=== PATIENT | male | born 1970 | race Caucasian/White ===

== ENCOUNTER 2019-03-09 04:45 | Inpatient (IN) | payer OTHER ==
[~2019-03-09] VITALS: Ht 182.9 cm; Wt 97.5 kg
[2019-03-09 05:18] LABS: BASOPHILS 0.3 % (0-2); EOSINOPHILS 2.1 % (0-7); HEMATOCRIT 42.4 % (42.0-54.0); HEMOGLOBIN 15.5 g/dL (13.5-17.5); IMMATURE GRANULOCYTES 0.3 % (0-5); LYMPHOCYTES 23.5 % (15-50); MCH 33.4 pg (26.0-34.0); MCHC 36.6 g/dL (31.0-37.0); MCV 91.4 fL (80.0-100.0); MEAN PLATELET VOLUME 10.1 fL (7.4-10.4); MONOCYTES 5.3 % (2-11); NEUTROPHILS 68.5 % (40-80); PLATELET COUNT 199 10x3/uL (130-400); RBC 4.64 10x6/uL (4.20-6.10); RDW 12.3 % (11.5-14.5); WBC 10.2 10x3/uL (4.8-10.8)
[2019-03-09 05:41] LABS: ALBUMIN 4.5 g/dL (3.4-5.0); ALKALINE PHOSPHATASE 46 U/L (46-116); ALT (SGPT) 37 U/L (10-68); BILIRUBIN - TOTAL 0.35 mg/dL (0.2-1.3); CALC OSMOLALITY 279 mosm/kg (275-300); CALCIUM 8.7 mg/dL (8.5-10.1); CARBON DIOXIDE 24.8 mmol/L (21.0-32.0); CHLORIDE - SERUM 104 mmol/L (98-107); CREATININE - SERUM 0.9 mg/dL (0.6-1.3); GLUCOSE 130 mg/dL (74-106); POTASSIUM - SERUM 3.8 mmol/L (3.5-5.1); PROTEIN - SERUM 8.4 g/dL (6.4-8.2); SODIUM 139 mmol/L (136-145); UREA NITROGEN 12 mg/dL (7-18); eGFR NON AFRICAN AMERICAN > 90 mL/min (90-120)
[2019-03-09 05:56] LABS: CKMB 0.6 U/L (0.0-3.6); CREATINE KINASE 114 UL (21-232); MAGNESIUM - SERUM 2.1 mg/dL (1.8-2.4); PRO BNP 40 pg/mL (0-125); TROPONIN-I < 0.017 ng/mL (0.000-0.060)
[2019-03-09 06:32] VITALS: BP 120/72
--- NOTE | 2019-03-09 06:44 | NUR ---
DARLINE BOWDEN TRIED TO CLEAN PT UP BUT PT REFUSED AND STATED HE WOULD CLEN HIMSELF UP AND HIS COULD HELP
--- NOTE | 2019-03-09 07:11 | NUR ---
REPORT RECEIVED FROM OFF GOING NURSE DARLINE HOFF
--- NOTE | 2019-03-09 07:12 | NUR ---
WILL ADMINISTER ORDERED ABT ONCE ORDERED BLOOD CULTURES X2 ARE COMPLETE.
[2019-03-09 07:40] LABS: UDS - AMPHET NEGATIVE QUAL (NEGATIVE); UDS - BARB NEGATIVE QUAL (NEGATIVE); UDS - BENZO NEGATIVE QUAL (NEGATIVE); UDS - COCAINE NEGATIVE QUAL (NEGATIVE); UDS - OPIATE NEGATIVE QUAL (NEGATIVE); UDS - PCP NEGATIVE QUAL (NEGATIVE); UDS - THC NEGATIVE QUAL (NEGATIVE)
[2019-03-09 07:53] LABS: APPEARANCE CLEAR (CLEAR); BACTERIA FEW /hpf (NONE SEEN); BILIRUBIN NEGATIVE (NEGATIVE); COLOR YELLOW (YELLOW); EPITHELIAL CELLS RARE /hpf (0-5); GLUCOSE NEGATIVE (NEGATIVE); KETONE NEGATIVE (NEGATIVE); MUCUS <1+ /lpf (NONE SEEN); NITRITE NEGATIVE (NEGATIVE); PROTEIN 1+ mg/dL (NEGATIVE); SPECIFIC GRAVITY 1.025 (1.005-1.020); UROBILINOGEN NORMAL (NORMAL)
--- NOTE | 2019-03-09 08:30 | NUR ---
NEW PATIENT ADMIT TO ROOM 2105. PATIENT IS AWAKE, ALERT AND ORIENTED X 4. PATIENT IS STABLE, NO ACUTE DISTRESS NOTED AND VSS. O2 PER NC AT 3L. IV TO LT AC 20G INFUSING NS AT 125. PAGTIENT DENIES ANY NEEDS OR PAIN. PATIENT ORIENGTED TO ROOM AND CALL LIGHT . WILL CONTINUE TO MONITOR. SR UP X 2 BED IN LOW POSITION AND CALL LIGHT IN REACH.
--- NOTE | 2019-03-09 09:45 | NUR ---
DR CHAWLA TO ROOM. NEW ORDERS RECEIVED.
[2019-03-09 09:59] VITALS: BP 111/72; Ht 182.9 cm; Wt 97.5 kg
[2019-03-09 12:35] VITALS: BP 116/72
--- NOTE | 2019-03-09 14:41 | NUR ---
DR MARTIN TO ROOM. PATIENT IS STABLE AND VSS. PATIENT DENIES ANY NEEDS OR PAIN. WILL CONTINUE TO MONITOR. SR UP X2 BED IN LOW POSITION AND CALL LIGHT IN REACH.
[2019-03-09 15:00] VITALS: BP 119/75
--- NOTE | 2019-03-09 16:21 | NUR ---
DR MARTIN AND TEO GABRIEL IN ROOM SEEING PATIENT. NEW ORDERS.
--- NOTE | 2019-03-09 19:54 | NUR ---
EVENING ROUNDS COMPLETED. VSS, AAOX4. NO S/S OF DISTRESS. SWELLING NOTED OF LEFT SIDE OF PT FOREHEAD, PT DENIES ANY PAIN @ SITE. PIV INTACT. ATBX INFUSING. DENIES ANY FURTHER NEEDS AT THIS TIME. WILL CPOC.
[2019-03-09 20:00] VITALS: BP 121/75
[2019-03-09 23:00] VITALS: BP 116/72
[2019-03-10 04:13] LABS: BASOPHILS 0.1 % (0-2); EOSINOPHILS 0 % (0-7); HEMATOCRIT 38.3 % (42.0-54.0); HEMOGLOBIN 14.1 g/dL (13.5-17.5); IMMATURE GRANULOCYTES 0.2 % (0-5); LYMPHOCYTES 5.2 % (15-50); MCH 33.2 pg (26.0-34.0); MCHC 36.8 g/dL (31.0-37.0); MCV 90.1 fL (80.0-100.0); MEAN PLATELET VOLUME 10.4 fL (7.4-10.4); MONOCYTES 3.8 % (2-11); NEUTROPHILS 90.7 % (40-80); PLATELET COUNT 179 10x3/uL (130-400); RBC 4.25 10x6/uL (4.20-6.10); RDW 12.3 % (11.5-14.5)
[2019-03-10 04:14] LABS: WBC 15.6 10x3/uL (4.8-10.8)
[2019-03-10 04:30] VITALS: BP 121/73
[2019-03-10 04:48] LABS: ALBUMIN 3.7 g/dL (3.4-5.0); ALKALINE PHOSPHATASE 35 U/L (46-116); ALT (SGPT) 28 U/L (10-68); BILIRUBIN - TOTAL 1.11 mg/dL (0.2-1.3); CALC OSMOLALITY 277 mosm/kg (275-300); CALCIUM 8.9 mg/dL (8.5-10.1); CARBON DIOXIDE 23.4 mmol/L (21.0-32.0); CHLORIDE - SERUM 103 mmol/L (98-107); CREATININE - SERUM 0.8 mg/dL (0.6-1.3); GLUCOSE 142 mg/dL (74-106); POTASSIUM - SERUM 4.1 mmol/L (3.5-5.1); PROTEIN - SERUM 7.4 g/dL (6.4-8.2); SODIUM 138 mmol/L (136-145); TROPONIN-I 0.021 ng/mL (0.000-0.060); UREA NITROGEN 13 mg/dL (7-18); eGFR NON AFRICAN AMERICAN > 90 mL/min (90-120)
--- NOTE | 2019-03-10 07:30 | NUR ---
A/A/OX4. SITTING UP IN BED WATCHING TV. 02 OFF AT PRESENT TIME WITH NO DISTRESS NOTED. DENIES ANY PAIN OR DISCOMFORT AND NO REQUESTS VOICED. ASSESSMENT COMPLETED AND WILL CONTINUE POC.
[2019-03-10 07:35] VITALS: BP 116/61
--- NOTE | 2019-03-10 10:20 | NUR ---
I have reviewed this patient and I concur with the Shift Assessment completed by the Licensed Practical Nurse today this shift.
[2019-03-10 11:21] VITALS: BP 116/76
[2019-03-10] MEDS ORDERED: LEVAQUIN750 MG PO (14:28)
[2019-03-10] MEDS ORDERED: FLORAJEN3 CAPS460 MG PO (14:29)
[2019-03-10] MEDS ORDERED: FLUTICASONE PRO16 GM NASAL (14:29)
[2019-03-10] MEDS ORDERED: PREDNISONE10 MG PO (14:30)
[2019-03-10] MEDS ORDERED: ALBUTEROL SULF8.5 GM INH (14:31)
--- NOTE | 2019-03-10 17:05 | NUR ---
DISCHARGE INSTRUCTIONS REVIEWED WITH PT AND VERBALIZES UNDERSTANDING WITH NO QUESTIONS. SL REMOVED LEFT AC WITH TIP INTACT. LEFT FLOOR VIA AMBULATORY AT HIS REQUEST AND LEFT FACILITY VIA PRIVATE CAR WITH HIS SON.
--- NOTE | 2019-03-10 17:06 | MORECARE ---
CASE MANAGEMENT DISCHARGE SUMMARY PATIENT: CHERYL DHALIWAL UNIT: [id number] ADM DATE: 03/09/19 AGE: 48 : 72 SEX: M ROOM/BED: D.2106 AUTHOR: CHAPIS,DOC PHYSICIAN: REFERRING PHYSICIAN: IVY SAMSON MD DATE OF SERVICE: 03/10/19 Discharge Plan Patient Name: CHERYL DHALIWAL Facility: [facility]:[place] : 1970 Planned Disposition: Home Anticipated Discharge Date: 03/10/19 Discharge Date: Expected LOS: 1 Initial Reviewer: [email or web address] Initial Review Date: 03/10/2019 Generated: 03/10/19 6:06 pm Comments DCP- Discharge Planning Updated by [email or web address]: Leonard Beckham on 03/10/19 4:[address] Patient Name: CHERYL DHALIWAL Admission Status: ER Accout number: [id number] Admission Date: 03-09-2019 : 1970 Admission Diagnosis: Attending: MALI, Current LOS: 1 Anticipated DC Date: 03-10-2019 Planned Disposition: Home Primary Insurance: [employer] PPO Discharge Planning Comments: CM MET WITH PT IN ROOM TO DISCUSS DISCHARGE PLANNING AND NEEDS. PT REPORTS LIVING AT HOME INDEPENDENTLY WITH SPOUSE AND SON. PT HAS NO MEDICAL EQUIPMENT AND NO OUTSIDE SERVICES ASSISTING IN THE HOME. CM DISCUSSED AVAILABILITY OF HOME HEALTH, REHAB SERVICES AND MEDICAL EQUIPMENT. PT DENIES DISCHARGE NEEDS, REPORTS HIS SON WILL PICK HIM UP FOR DISCHARGE HOME. PHYTOPATHOLOGIST NURSE NOTIFIED. Direct Support Staff: Leonard Beckham DCPIA - Discharge Planning Initial Assessment Updated by [email or web address]: Leonard Beckham on 03/10/19 5:01 pm * Is the patient Alert and Oriented? Yes * How many steps to enter\exit or inside your home? NONE * PCP DR. SMASON * Pharmacy [facility] * Preadmission Environment Home with Family * ADLs Independent * Equipment None * Other Equipment NO MEDICAL EQUIPMENT PROVIDER PREFERENCE * List name and contact numbers for known caregivers / representatives who currently or will assist patient after discharge: GERI DHALIWAL, SPOUSE, * Verbal permission to speak to the caregivers and representatives has been obtained from the patient. N/A * Community resources currently utilized None * Please name any agencies selected above. NONE * Additional services required to return to the preadmission environment? No * Can the patient safely return to the preadmission environment? Yes * Has this patient been hospitalized within the prior 30 days at any hospital? No Patient Name: CHERYL DHALIWAL Page [phone] at 1706 All edits/amendments must be made on the electronic document DICTATION DATE: 03/10/191704 DRAMATIC CRITIC: JANELLE 03/10/191704 RPT#: [id number] DC DATE: STATUS: ADM IN [facility] [address] [place] [address] END OF REPORT
== END 2019-03-10 17:12 | disposition home or self-care (01) | DRG 202 ==
LOC: D.ER 04:45 → D.M2 07:26
PROVIDERS: Family Medicine; ADMIT Family Medicine; ATTEND Family Medicine
DX: J20.9 Acute bronchitis, unspecified (principal); F17.213 Nicotine dependence, cigarettes, with withdrawal; J45.901 Unspecified asthma with (acute) exacerbation; S00.03XA Contusion of scalp, initial encounter; W19.XXXA Unspecified fall, initial encounter; F10.129 Alcohol abuse with intoxication, unspecified; Y90.6 Blood alcohol level of 120-199 mg/100 ml

== ENCOUNTER 2019-07-10 04:39 | Inpatient (IN) | payer OTHER ==
[~2019-07-10] VITALS: Ht 193 cm; Wt 99.1 kg
[~2019-07-10 04:39] MED LIST: ALBUTEROL SULF8.5 GM INH; FLORAJEN3 CAPS460 MG PO; FLUTICASONE PRO16 GM NASAL; LEVAQUIN750 MG PO; PREDNISONE10 MG PO
[2019-07-10 05:16] LABS: BASOPHILS 0.2 % (0-2); EOSINOPHILS 3.1 % (0-7); HEMATOCRIT 41.4 % (42.0-54.0); HEMOGLOBIN 15.1 g/dL (13.5-17.5); IMMATURE GRANULOCYTES 0.3 % (0-5); LYMPHOCYTES 13.1 % (15-50); MCHC 36.5 g/dL (31.0-37.0); MCV 90.6 fL (80.0-100.0); MONOCYTES 4.9 % (2-11); NEUTROPHILS 78.4 % (40-80); PLATELET COUNT 213 10x3/uL (130-400); RBC 4.57 10x6/uL (4.20-6.10); RDW 12.1 % (11.5-14.5); WBC 12.6 10x3/uL (4.8-10.8)
[2019-07-10 05:27] LABS: INR 0.96 (0.85-1.17); PROTIME 12.3 SECONDS (11.6-15.0)
[2019-07-10 05:28] LABS: APTT 30.1 SECONDS (22.8-39.4)
[2019-07-10 05:40] LABS: ALBUMIN 4.4 g/dL (3.4-5.0); ALKALINE PHOSPHATASE 59 U/L (46-116); ALT (SGPT) 26 U/L (10-68); BILIRUBIN - TOTAL 0.52 mg/dL (0.2-1.3); CALC OSMOLALITY 279 mosm/kg (275-300); CALCIUM 8.5 mg/dL (8.5-10.1); CARBON DIOXIDE 28.4 mmol/L (21.0-32.0); CHLORIDE - SERUM 102 mmol/L (98-107); GLUCOSE 98 mg/dL (74-106); POTASSIUM - SERUM 4.8 mmol/L (3.5-5.1); PROTEIN - SERUM 7.9 g/dL (6.4-8.2); SODIUM 140 mmol/L (136-145); UREA NITROGEN 14 mg/dL (7-18); eGFR NON AFRICAN AMERICAN 85 mL/min (90-120)
[2019-07-10 05:47] LABS: CKMB 0.7 U/L (0.0-3.6); CREATINE KINASE 121 UL (21-232); PRO BNP 17 pg/mL (0-125); TROPONIN-I < 0.017 ng/mL (0.000-0.060)
--- NOTE | 2019-07-10 06:55 | NUR ---
PT TO RADIOLOGY AT THIS TIME.
--- NOTE | 2019-07-10 07:04 | NUR ---
PT LEFT ED VIA STRETCHER FOR CTA.
--- NOTE | 2019-07-10 07:20 | NUR ---
PT RETURNED FROM RADIOLOGY AT THIS TIME.
[2019-07-10 08:26] VITALS: BP 123/75
--- NOTE | 2019-07-10 10:12 | NUR ---
PT ARRIVED TO UNIT VIA WHEELCHAIR. RR EVEN AND UNLABORED. PT TAKEN OFF OF 2L BY RESPIRATORY. OXYGEN SAT HOLDING AT 97% ROOM AIR. DENIES PAIN OR NEEDS AT THIS TIME. WILL CONTINUE TO MONITOR.
--- NOTE | 2019-07-10 10:13 | NUR ---
RESPIRATORY TX IN PROGRESS.
[2019-07-10 17:00] VITALS: Ht 193 cm; Wt 99.1 kg
[2019-07-10 17:30] VITALS: BP 123/77
[2019-07-10 20:36] VITALS: BP 131/80
[2019-07-10 21:54] LABS: UDS - AMPHET NEGATIVE QUAL (NEGATIVE); UDS - BARB NEGATIVE QUAL (NEGATIVE); UDS - BENZO NEGATIVE QUAL (NEGATIVE); UDS - COCAINE NEGATIVE QUAL (NEGATIVE); UDS - OPIATE NEGATIVE QUAL (NEGATIVE); UDS - PCP NEGATIVE QUAL (NEGATIVE); UDS - THC NEGATIVE QUAL (NEGATIVE)
[2019-07-10 23:49] VITALS: BP 139/82
[2019-07-11 04:03] VITALS: BP 116/73
[2019-07-11 06:17] LABS: BASOPHILS 0 % (0-2); EOSINOPHILS 0 % (0-7); HEMATOCRIT 41.2 % (42.0-54.0); HEMOGLOBIN 14.6 g/dL (13.5-17.5); IMMATURE GRANULOCYTES 0.1 % (0-5); LYMPHOCYTES 8.2 % (15-50); MCHC 35.4 g/dL (31.0-37.0); MCV 90.4 fL (80.0-100.0); MEAN PLATELET VOLUME 10.5 fL (7.4-10.4); MONOCYTES 2.8 % (2-11); NEUTROPHILS 88.9 % (40-80); PLATELET COUNT 235 10x3/uL (130-400); RBC 4.56 10x6/uL (4.20-6.10); RDW 12.2 % (11.5-14.5); WBC 10.2 10x3/uL (4.8-10.8)
[2019-07-11 06:26] LABS: CALC OSMOLALITY 281 mosm/kg (275-300); CARBON DIOXIDE 27.9 mmol/L (21.0-32.0); CHLORIDE - SERUM 102 mmol/L (98-107); CREATININE - SERUM 0.9 mg/dL (0.6-1.3); POTASSIUM - SERUM 4.5 mmol/L (3.5-5.1); SODIUM 140 mmol/L (136-145); UREA NITROGEN 13 mg/dL (7-18); eGFR NON AFRICAN AMERICAN > 90 mL/min (90-120)
[2019-07-11 06:31] LABS: GLUCOSE 156 mg/dL (74-106)
--- NOTE | 2019-07-11 07:20 | NUR ---
PT IN BED WITH HOB ELEVATED. ALERT AND ORIENTED. ON ROOM AIR. RIGHT AC 18G IV SL. PT STATES HE HAS NO FURTHER NEEDS AT THIS TIME. BED LOW. CL IN REACH.
[2019-07-11 07:54] VITALS: BP 134/78
--- NOTE | 2019-07-11 08:25 | NUR ---
FLUSHED PT'S RIGHT AC 18G IV WITH 10ML OF NS.
--- NOTE | 2019-07-11 09:38 | NUR ---
PT LYING IN BED WITH HOB ELEVATED. PT STATES HE HAS NO FURTHER NEEDS AT THIS TIME. BED LOW. CL IN REACH.
--- NOTE | 2019-07-11 11:20 | NUR ---
I have reviewed this patient and I concur with the Shift Assessment completed by the Licensed Practical Nurse today this shift.
[2019-07-11 11:52] VITALS: BP 125/73
[2019-07-11] MEDS ORDERED: SINGULAIR10 MG PO (14:35)
[2019-07-11] MEDS ORDERED: IPRAT-ALBUT 0.5-3 ML INH (14:35)
[2019-07-11] MEDS ORDERED: SYMBICORT 16010.2 GM INH (14:35)
[2019-07-11] MEDS ORDERED: PREDNISONE10 MG PO (14:36)
--- NOTE | 2019-07-11 17:16 | NUR ---
LEFT AC IV DC'D WITH CATH INTACT. DISCHARGE INSTRUCTIONS GIVEN TO PT AND HE VERBALIZED UNDERSTANDING. DICHARGE COPY SIGNED.
--- NOTE | 2019-07-11 17:20 | NUR ---
PT LEFT VIA WC ACCOMAPNIED BY FAMILY AND LEFT IN PERSONAL CAR.
--- NOTE | 2019-07-11 17:44 | MORECARE ---
CASE MANAGEMENT DISCHARGE SUMMARY PATIENT: CHERYL DHALIWAL UNIT: [id number] ADM DATE: 07/10/19 AGE: 49 : 72 SEX: M ROOM/BED: D.1213 AUTHOR: CHAPISDOC PHYSICIAN: REFERRING PHYSICIAN: GIBRAN LUDWIG MD DATE OF SERVICE: 07/11/19 Discharge Plan Patient Name: CHERYL DHALIWAL Facility: [facility]:[place] : 1970 Planned Disposition: Home Anticipated Discharge Date: Discharge Date: 07/11/2019 Expected LOS: Initial Reviewer: [email or web address] Initial Review Date: 07/11/2019 Generated: 07/11/19 6:44 pm Comments DCP- Discharge Planning Updated by [email or web address]: Laura Cabral on 07/11/19 4:[address] LATE ENTRY 07/11/19 @ 1240 Patient Name: CHERYL DHALIWAL Admission Status: ER Accout number: [id number] Admission Date: 07-10-2019 : 1970 Admission Diagnosis: Attending: GIBRAN ULDWIG Current LOS: 1 Anticipated DC Date: Planned Disposition: Home Primary Insurance: [facility] PPO Discharge Planning Comments: CM met with patient at bedside after explaining CM role and obtaining verbal consent. Patient lives at home with his Caprice where he is independent with his care and plans to return there upon discharge. Patient feels this would be a safe discharge. CM discussed availability / needs of home health and medical equipment. Patient denies any discharge needs at this time. Patient states he will have his family drive him home upon discharge. CM will continue to follow and assist as needed with discharge planning / needs. Maintenance Of Way Supervisor: Laura Cabral DCPIA - Discharge Planning Initial Assessment Updated by [id number]: Laura Cabral on 07/11/19 5:39 pm * Is the patient Alert and Oriented? Yes * How many steps to enter\exit or inside your home? * PCP MALI * Pharmacy [facility] * Preadmission Environment Home with Family * ADLs Independent * Equipment None * List name and contact numbers for known caregivers / representatives who currently or will assist patient after discharge: CAPRICE DHALIWAL - SPOUSE- [phone] * Verbal permission to speak to the caregivers and representatives has been obtained from the patient. Yes * Community resources currently utilized None * Additional services required to return to the preadmission environment? No * Can the patient safely return to the preadmission environment? Yes * Has this patient been hospitalized within the prior 30 days at any hospital? No Patient Name: CHERYL DHALIWAL Page [phone] at 1744 All edits/amendments must be made on the electronic document DICTATION DATE: 07/11/191742 ASL INTERPRETER: JANELLE 07/11/191742 RPT#: [id number] DC DATE:07/11/19 STATUS: DIS IN [facility] [address] [place] [address] END OF REPORT
--- NOTE | 2019-07-12 08:16 | MORECARE ---
CASE MANAGEMENT DISCHARGE SUMMARY PATIENT: CHERYL DHALIWAL UNIT: [id number] ADM DATE: 07/10/19 AGE: 49 : 72 SEX: M ROOM/BED: D.1213 AUTHOR: CHAPISDOC PHYSICIAN: REFERRING PHYSICIAN: GIBRAN LUDWIG MD DATE OF SERVICE: 07/12/19 Discharge Plan Patient Name: CHERYL DHALIWAL Facility: [facility]:[place] : 1970 Planned Disposition: Home Anticipated Discharge Date: Discharge Date: 07/11/2019 Expected LOS: Initial Reviewer: [email or web address] Initial Review Date: 07/11/2019 Generated: 07/12/19 9:16 am DCP- Discharge Planning Updated by [id number]: Laura Cabral on 07/11/19 4:[address] LATE ENTRY 07/11/19 @ 1240 Patient Name: CHERYL DHALIWAL Admission Status: ER Accout number: [id number] Admission Date: 07-10-2019 : 1970 Admission Diagnosis: Attending: GIBRAN LUDWIG Current LOS: 1 Anticipated DC Date: Planned Disposition: Home Primary Insurance: [facility] PPO Discharge Planning Comments: CM met with patient at bedside after explaining CM role and obtaining verbal consent. Patient lives at home with his Caprice where he is independent with his care and plans to return there upon discharge. Patient feels this would be a safe discharge. CM discussed availability / needs of home health and medical equipment. Patient denies any discharge needs at this time. Patient states he will have his family drive him home upon discharge. CM will continue to follow and assist as needed with discharge planning / needs. Vehicle Body Maker: Laura Cabral DCPIA - Discharge Planning Initial Assessment Updated by [email or web address]: Laura Cabral on 07/11/19 5:39 pm * Is the patient Alert and Oriented? Yes * How many steps to enter\exit or inside your home? * PCP MALI * Pharmacy [facility] * Preadmission Environment Home with Family * ADLs Independent * Equipment None * List name and contact numbers for known caregivers / representatives who currently or will assist patient after discharge: CAPRICE DHALIWAL - SPOUSE- [phone] * Verbal permission to speak to the caregivers and representatives has been obtained from the patient. Yes * Community resources currently utilized None * Additional services required to return to the preadmission environment? No * Can the patient safely return to the preadmission environment? Yes * Has this patient been hospitalized within the prior 30 days at any hospital? No Last DP export: 07/11/19 4:44 p Patient Name: CHERYL DHALIWAL Page 26890 at 0816 All edits/amendments must be made on the electronic document DICTATION DATE: 07/12/19814 MANAGER SALT: JANELLE 07/12/19814 RPT#: [id number] DC DATE:07/11/19 STATUS: DIS IN [facility] [address] [place] [address] END OF REPORT
--- NOTE | 2019-08-02 14:43 | CN ---
PATIENT NAME:CHERYL LOPEZ MEDICAL RECORD: [id number] : [birth year] LOCATION:[facility] D.1213 ADMIT DATE: 07/10/19 ACCOUNT: [id number] CONSULTING PHYSICIAN: LYLY LEW MD REFERRING PHYSICIAN: ISAÍAS ORTEZ MD DATE OF CONSULTATION: 07/10/2019 CONSULT REQUESTING PHYSICIAN: Isaías Ortez MD REASON FOR CONSULTATION: Acute exacerbation of chronic obstructive pulmonary disease, asthma. HISTORY OF PRESENT ILLNESS: Mr. Lopez is a 49-year-old gentleman who has a history of asthma. He was doing fairly with albuterol inhaler p.r.n. He got sick since yesterday with coughing, wheezing, and shortness of breath. He is still smoking. On arrival to the ER, the patient was hypoxic. There is no significant yellow colored sputum production. The patient was recently treated for bronchitis with Levaquin and prednisone. REVIEW OF SYSTEMS: As in history of present illness. PAST MEDICAL HISTORY: 1. Asthma. 2. Tobacco dependence syndrome. PAST SURGICAL HISTORY: He has appendectomy. ALLERGIES: No known drug allergy. MEDICATIONS: [employer] is reviewed. PERSONAL AND SOCIAL HISTORY: The patient is still smoking. He is also drinking. He denies any recreational drugs. FAMILY HISTORY: Significant for cancer and hypertension. PHYSICAL EXAMINATION: GENERAL: Now, the patient is lying comfortably in bed. He is not in acute distress. VITAL SIGNS: The blood pressure is 123/75, pulse is 110, respirations 16, temperature 98.1, and SPO2 97% on room air. HEENT: Conjunctivae are pink. Sclerae are not icteric. NECK: Neck is supple, no JVD. CHEST: There is prolonged expiration with wheezing. There is no dullness on percussion. HEART: Rhythm regular, normal sound, no murmur. ABDOMEN: Abdomen is soft. Bowel sounds present. No hepatosplenomegaly. RECTAL: Deferred. EXTREMITIES: No cyanosis, no clubbing, no pedal edema. CENTRAL NERVOUS SYSTEM: The patient is awake and alert. There are no obvious cranial nerve abnormalities. The gait was not tested. LABORATORY DATA AND DIAGNOSTIC STUDIES: CT scan of the chest, there is no pulmonary embolism and no acute chest findings. CBC; the WBC is 12.6, hemoglobin is 15.1, hematocrit is 41.4, and the platelet count 213. CONSULT REPORT [id number] CHERYL LOPEZ IMPRESSION: 1. Acute exacerbation of chronic obstructive pulmonary disease. 2. Asthma. 3. Tracheobronchitis. 4. Acute cough. 5. Leukocytosis. 6. Tobacco dependence syndrome. RECOMMENDATIONS: 1. Continue albuterol/ipratropium nebulizer. 2. Methylprednisolone IV, adjust the dosage. 3. Singulair 10 mg daily. 4. Start Brovana and budesonide nebulizer. 5. Albuterol/ipratropium nebulizer. 6. Empiric antibiotic. 7. Deep vein thrombosis prophylaxis. 8. The patient was counseled to quit smoking. 9. He will need workup as an outpatient for the COPD. Dr. Ortez, thank you for involving me in the care of Mr. Lopez. TRANSINT:[id number] Voice Confirmation ID: [id number] DOCUMENT ID: [id number] LYLY LEW MD at 1443 CC: [id number] DICTATION DATE: 07/10/19 1444 PLANNING SUPERVISOR: 07/10/19 1504 DIS IN 07/11/19 [place] [id number] [place] [id number]
== END 2019-07-11 17:22 | disposition home or self-care (01) | DRG 189 ==
LOC: D.ER 04:39 → D.M3 09:13 → OBSVTIME 09:51 → D.M3 16:51
PROVIDERS: Family Medicine; ADMIT Internal Medicine Nephrology; ATTEND Internal Medicine Nephrology
DX: J96.01 Acute respiratory failure with hypoxia (principal); J44.1 Chronic obstructive pulmonary disease with (acute) exacerbation; Z91.19 Patient's noncompliance with other medical treatment and regimen; J40 Bronchitis, not specified as acute or chronic; F17.210 Nicotine dependence, cigarettes, uncomplicated